=== PATIENT | female | born 1980 | race Caucasian/White ===

== ENCOUNTER 2023-04-03 13:36 | Emergency (ER) | payer OTHER ==
[~2023-04-03] VITALS: Ht 167.6 cm; Wt 82.1 kg
[2023-04-03 13:52] VITALS: BP 130/70; PULSE 97; RESP 14; TEMP 97.8; O2SAT 97
== END 2023-04-03 17:27 | disposition left against medical advice (07) ==
LOC: MED 13:36
DX: R51.9 Headache, unspecified (principal); R20.0 Anesthesia of skin; R06.02 Shortness of breath; R41.0 Disorientation, unspecified; Z53.21 Procedure and treatment not carried out due to patient leaving prior to being seen by health care provider
CPT/HCPCS: 99281